=== PATIENT | male | born 1995 | race Caucasian/White ===

== ENCOUNTER 2019-05-26 11:00 | Emergency (ER) | payer OTHER | END 2019-05-26 11:44 | disposition home or self-care (01) | LOC: ERS 11:00 | DX: R05 Cough (principal) | CPT/HCPCS: 99283 ==

== ENCOUNTER 2020-03-21 13:59 | Emergency (ER) | payer SELFPAY ==
[2020-03-21 22:41] LABS: SARS-CoV-2 PCR by NAA Not Detected (NotDetected)
== END 2020-03-21 15:55 | disposition home or self-care (01) ==
LOC: ERS 13:59
DX: J02.9 Acute pharyngitis, unspecified (principal); J34.89 Other specified disorders of nose and nasal sinuses; R05 Cough; R06.02 Shortness of breath; M79.10 Myalgia, unspecified site; Z20.822 Contact with and (suspected) exposure to COVID-19
CPT/HCPCS: 87635; 99283; U0003; U0005